=== PATIENT | female | born 1990 | race Two or more races ===

== ENCOUNTER 2025-03-26 10:10 | Outpatient (CLI) | payer OTHER | END 2025-03-26 10:11 | disposition home or self-care (01) | LOC: NUCLEAR 10:10 | DX: I87.2 Venous insufficiency (chronic) (peripheral) (principal) ==

== ENCOUNTER 2025-03-31 08:39 | Outpatient (CLI) | payer OTHER | END 2025-03-31 08:40 | disposition home or self-care (01) | LOC: NUCLEAR 08:39 | DX: I73.9 Peripheral vascular disease, unspecified (principal) ==